=== PATIENT | female | born 1995 | race Caucasian/White ===

== ENCOUNTER 2025-03-17 15:40 | Outpatient (CLI) | payer OTHER, SELFPAY ==
--- OUTSIDE RECORDS SUMMARY | 2025-03-17 15:46 | XMS_ITS | Encounter Summary ---
Author Organization [facility] Address [address] [place] [address] Care Team Providers Care Emergency Room Clerk Name Role Phone Ghanshyam Aguillon MD Primary Care Provider [phone] Encounter Details Date Type Department Care Team (Late st Contact Info) Description 03/25/2019 Lab Requisition [facility] DermPath Lab [address] [facility] [place] [id number] Jeanmarie Harmon MD [address] [place] [address] Social History Tobacco Use Types Packs/Day Years Used Date Smoking Tobacco: Never Assessed Comments Unknown Sex and Gender Information Value Date Recorded Sex Assigned at Not on file 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 Gender Identity Not on file Sexual Orientation Not on file documented as of this encounter Plan of Treatment Not on file documented as of this encounter Procedures Procedure Name Priority Date/Time Associated Diagnosis Comments DERMATOPATHOLOGY Routine 03/24/2019 12:0 0 AM CDT documented in this encounter Results * DERMATOPATHOLOGY (03/24/2019 12:00 AM CDT) Case Report Dermatopathology Report Case: [id number] Authorizing Provider: Jeanmarie Harmon MD Collected: 03/24/2019 12:00 AM Pathologist: Danny Snider MD Received: 03/25/2019 11:39 AM Specimen: Skin, below left jawline 9 4:05 PM CDT DERMATOPATHOLOGY LABORATORY Final Diagnosis Specimen A. SKIN, below left jawline: CHRONIC PERIFOLLICULITIS (L73.8) (see microscopic description) 9 4:05 PM CDT DERMATOPATHOLOGY LABORATORY at 1605 CDT Clinical History R/O DF, other. 9 4:05 PM CDT DERMATOPATHOLOGY LABORATORY Gross Description Specimen A: Received is one formalin filled container labeled with the patient's name and designated below left jawline. The specimen consists of a shave biopsy measuring [id number]. Jar 0. 4:05 PM CDT DERMATOPATHOLOGY LABORATORY Microscopic Description Specimen A. SKIN, below left jawline: Sections show a perifollicular lymphohistiocytic infiltrate. Additional deeper sections were obtained and reviewed. 4:05 PM CDT DERMATOPATHOLOGY LABORATORY Disclaimer An external and internal positive and negative controls are appropriate for the histochemical, immunohistochemical and immunofluorescence stain(s) in this case (if any), except where stated explicitly. The performance characteristics of the stain(s) cited in this report were developed and its performance characteristic determined by the Dermatopathology Laboratory at [facility], directed by Dr. Lacey Snider. These tests need not be, and therefore are not, approved by the [place] Food and Drug Administration. The tests are used for clinical purposes. Billing Codes Specimen Charges Stain Charges 01100 1 9 4:05 PM CDT DERMATOPATHOLOGY LABORATORY Embedded Images 4:05 PM CDT DERMATOPATHOLOGY LABORATORY Pathology/Cytolog y TISSUE SPECIMEN FROM SKIN / Unknown 03/24/2019 03/25/2019 11:39 AM CDT Jeanmarie Harmon MD LAB - PATHOLOGY/CYTOLOGY ORD ERABLES Final Result DERMATOPATHOLOGY LABORATORY [facility] - Department of Dermatology [address] [facility] [facility], [address]th [place] [address], [facility] [phone] documented in this encounter Visit Diagnoses Not on filedocumented in this encounter Care Teams Emergency Room Clerk Relationship Specialty Start Date End Date Ghanshyam Aguillon MD [address] [place] [address] [address] [place] [address] PCP - General 10/08/16 documented as of this encounter
--- OUTSIDE RECORDS SUMMARY | 2025-03-17 15:46 | XMS_ITS | Clinical Summary ---
Author Organization [facility] Address [address] [place] [address] Care Team Providers Care Exhibit Display Representative Name Role Phone Ghanshyam Aguillon MD Primary Care Provider Source Comments [facility],non-owned Affiliates and Associated Physician Practices is amultiple site organization consisting of ambulatory clinics and hospital sitesin [place], [place], [place] and [place]. This disclosure is being madepursuant to the Care Everywhere program and may not contain all information available regarding this patient. 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 Gender Identity Not on file Sexual Orientation Not on file Plan of Treatment Health Maintenance Due Date Last Done Comments HIV SCREENING 2009 HEPATITIS C SCREENING 01/20/2012 DTAP/TDAP/TD VACCINES (1 - Tdap) 2013 HEPATITIS B VACCINE (1 of 3 - 19+ 3-dose series) 2013 COVID-19 VACCINE ( - 2023-2 5 season) 2024 DEPRESSION SCREENING 09/08/2024 INFLUENZA VACCINE (Season Ended) 2025 ZOSTER VACCINE (1 of 2) 01/25/2044 HIB VACCINE Aged Out No longer eligi ble based on patient's age to complete this topic HPV VACCINE Aged Out No longer eligi ble based on patient's age to complete this topic MENINGOCOCCAL (Group B) VACC INE SHARED DECISION-MAKING Aged Out No longer eligibl e based on patient's age to complete this topic MENINGOCOCCAL GROUPS A/C/Y/W VACCINE Aged Out No longer eligible b ased on patient's age to complete this topic PNEUMOCOCCAL VACCINE Aged Out No long er eligible based on patient's age to complete this topic [place] [address] [facility] Care Teams Exhibit Display Representative Relationship Specialty Start Date End Date Ghanshyam Aguillon MD [address] [place] [address] PCP - General 10/08/16
--- OUTSIDE RECORDS SUMMARY | 2025-03-17 15:46 | XMS_ITS | Continuity of Care Document ---
Author Organization [facility] Address [address] [place] [address] [address] [place] [address] Phone Care Team Providers Care Adjunct Teacher Name Role Phone Alicia VERGARA MD, Caesar Unavailable Unavailable Allergies, Adverse Reactions, Alerts Substance Reaction Status Criticality MINOCYCLINE HCL Active No Informati on azithromycin Active No Information Medications Medication Instructions Dosage Effective Dates (start - stop) Status Comments Xiidra 5 % eye drops in a dropperette instill 1 drop by ophthalmic route 2 times every day into both eyes approximately 12 hours apart 1.00 drop - Active Adderall XR 20 mg capsule,extended release take 1 capsule by oral route every day in the morning upon awakening 20 MG - Active control (unknown strength) Not Available - Active Xiidra 5 % eye drops in a dropperette instill 1 drop by ophthalmic route 2 times every day into both eyes approximately 12 hours apart 1.00 drop - No Longer Active PLEASE FILL FIRST RX FREE PER COUPON THAT PT IS BRINGING IN Procedures Procedure Date OFFICE/OUTPATIENT VISIT, EST OFFICE/OUTPATIENT VISIT, NEW OPHTHALMIC BIOMETRY SPECIAL EYE EXAM, INITIAL MICROFLUID BEAR TEARS MICROFLUID BEAR TEARS OPHTHALMIC BIOMETRY OPHTHALMIC BIOMETRY Advance Directives Directive Yes / No Effective Date File Name No Information Encounters Encounter Description Practice Location Reason(s) For Visit Diagnoses Date Provider Providers Copied on Encounter [facility], [address] [facility] [address], [place], [place], [id number], [place] tel:[phone] OPH CONSULT BOY DENSON No Information 7 Alicia Maynard. [address], [place], [place], [id number] , [place]. tel:[phone] OFFICE/OUTPA TIENT VISIT, [facility], [address] [place] [address], [id number], tel:[phone] OPH CONSULT BOY DENSON vision is improved OU (chief complaint) No Information 7 Alicia Maynard. [address], [address], [place], [place], [id number] , [place]. tel:[phone] Referring Provider: Caesar Vargas MD P, [address] [place] [address], [address] . tel:[phone] OFFICE/OUTPA TIENT VISIT, [facility], [address] [place] [address], [id number], tel:[phone] OPH CONSULT BOY DENSON LASIK evaluation (chief complaint) Age-related nuclear cataract, bilateralKerato conjunct sicca, not specified as Sjogren's, bilateralMyopia , bilateralOther vitreous opacities, bilateralAcute atopic conjunctivitis, bilateral Alicia Maynard. [address], [address], [place], [place], [id number] , [place]. tel:[phone] Referring Provider: Caesar Talamantes, [address], [place], [address] . tel:[phone] Family History Family Member Type Diagnosis Age At Onset No Information Payers Payer name Insurance type Covered green party ID Authoriza tiyenni(s) [facility] CI [id number] Social History Type Description Quantity Date Captured Comments Sex Female Smoking Status No Information Chief Complaint And Reason For Visit No Information Reason For Referral Reason For Referral No Information History Of Present Illness Encounter Date Complaint History Of Prese nt Illness vision is improved vision is imp roved OU LASIK evaluation The 21 year old female presents for LASIK evaluation in both eyes. Patient reports vision seems stable OU with glasses. Patient does not wear contacts. Ocular comfort doing well. Glasses are [address] Keith Jimenez. Optical biometry and pachs ordered today. TL ordered 289/316 Functional Status Date Functional Assessmen t No Information Instructions Date Instruction Additional Infor jay Follow up - RTO for LASIK OU with JG Impression/Plan - Th ere is no evidence of retinal pathology. All signs and risks of retinal detachment and tears were discussed in detail. Patient instructed to call office immediately if any symptoms noted. Related to Other vitreous opacities, bilateral Impression/Plan - Up dated Mrx for Dx/treatment. Related to Myopia, bilateral Impression/Plan - Th ere is no evidence of permanent changes to the cornea. Explained condition does not have a cure and will need artificial tears for maintenance.Tear lab 289/316 Related to Keratoconjunct sicca, not specified as Sjogren's, bilateral Impression/Plan - Di scussed diagnosis in detail with patient. Discussed treatment options with patient. Lasik candidate. Surgical risks and benefits were discussed, explained and understood by patient. Patient elects to have surgery. Educational materials provided:Eye drops, Dry eye syndrome and Lasik.Ref by [facility] Related to Age-related nuclear cataract, bilateral Impression/Plan - Co ndition is seasonal. No treatment at this time. Related to Acute atopic conjunctivitis, bilateral Assessments Type Assessment Date No Information Patient Care Teams Name Effective Dates (start - stop) Status Members No Information
--- OUTSIDE RECORDS SUMMARY | 2025-03-17 15:46 | XMS_ITS | Encounter Summary ---
Author Organization [facility] Address [address] [place] [address] Care Team Providers Care Ticker Wirer Name Role Phone Ghanshyam Aguillon MD Primary Care Provider [phone] Encounter Details Date Type Department Care Team (Late st Contact Info) Description 09/02/2018 Lab Requisition 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 Gender Identity Not on file Sexual Orientation Not on file documented as of this encounter Plan of Treatment Not on file documented as of this encounter Procedures Procedure Name Priority Date/Time Associated Diagnosis Comments DERMATOPATHOLOGY Routine 08/31/2018 12:0 0 AM CLINICAL REVIEWER documented in this encounter Results * DERMATOPATHOLOGY (08/31/2018 12:00 AM CLINICAL REVIEWER) Case Report Dermatopathology Report Case: [id number] Authorizing Provider: Jeanmarie Harmon MD Collected: 08/31/2018 12:00 AM Pathologist: Fariha Dewey MD Received: 09/02/2018 02:30 PM Specimen: Skin, right breast 8 11:28 AM CLINICAL REVIEWER DERMATOPATHOLOGY LABORATORY Final Diagnosis Specimen A. 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 8 11:28 AM [facility] DERMATOPATHOLOGY LABORATORY Gross Description Specimen A: Received is one formalin filled container labeled with the patient's name and designated right breast. The specimen consists of a shave biopsy measuring [id number]. Jar 0. 8 11:28 AM [facility] DERMATOPATHOLOGY LABORATORY Microscopic Description Specimen A. SKIN, right breast: This is a compound nevus. There is architectural disorder characterized by a lentiginous proliferation of melanocytes between irregular nevus nests of cells along the dermal-epidermal junction. There is underlying lamellar fibroplasia of the papillary dermis. The intradermal component is bland in appearance and matures with depth. (Compound Roland's Nevus or Compound Dysplastic Nevus) 8 11:28 AM [facility] DERMATOPATHOLOGY LABORATORY Disclaimer An external and internal positive and negative controls are appropriate for the histochemical, immunohistochemical and immunofluorescence stain(s) in this case (if any), except where stated explicitly. The performance characteristics of the stain(s) cited in this report were developed and its performance characteristic determined by the Dermatopathology Laboratory at [facility]. These tests need not be, and therefore are not, approved by the [place] Food and Drug Administration. The tests are used for clinical purposes. Billing Codes Specimen Charges Stain Charges 60194 1 8 11:28 AM [facility] DERMATOPATHOLOGY LABORATORY Embedded Images 11:28 AM [facility] DERMATOPATHOLOGY LABORATORY Pathology/Cytolog y TISSUE SPECIMEN FROM SKIN / Unknown 08/31/2018 09/02/2018 2:30 PM [facility] Jeanmarie Harmon MD LAB - PATHOLOGY/CYTOLOGY ORD ERABLES Final Result DERMATOPATHOLOGY LABORATORY [facility] - Department of Dermatology [address] [place] [address], [address]th Floor Lab [address] [phone] documented in this encounter Visit Diagnoses Not on filedocumented in this encounter Care Teams Ticker Wirer Relationship Specialty Start Date End Date Ghanshyam Aguillon MD [address] [place] [address] [address] [place] [address] PCP - General 10/08/16 documented as of this encounter
--- NOTE | 2025-03-17 15:53 | ECG_ITS ---
Test Date: 2025-03-17 15:59:25 Measurements Intervals [place] Rate: 87 P: 68 DC: 136 QRS: 71 QRSD: 91 T: 43 QT: 374 QTc: 451 Interpretive Statements SINUS RHYTHM POSSIBLE LEFT ATRIAL ENLARGEMENT [-0.1mV P-WAVE IN V1/V2] No previous ECG available for comparison Electronically Signed On 03-18-2025 07:14:21 CDT by Sonya Castaneda M.D.
== END 2025-03-17 15:41 | disposition home or self-care (01) ==
LOC: ANHCARD 15:43
PROVIDERS: PCP Nurse Practitioner Family; Visit Provider Nurse Practitioner Family
DX: R00.0 Tachycardia, unspecified (principal); R07.9 Chest pain, unspecified
CPT/HCPCS: 93005

== ENCOUNTER → 2025-07-25 10:10 | Outpatient (CLI) | payer OTHER, SELFPAY ==
--- NOTE | ~2025-07-25 | XR_ITS ---
EXAMINATION: XR hand RT min 3V, 07/25/2025 10:12 PROGRAM DIRECTOR SUBSTANCE ABUSE HISTORY: M79.641 - Pain in right hand COMPARISON: No comparisons available. Findings: No acute fracture or malalignment. No significant degenerative changes. Soft tissues unremarkable. Impression: No acute fracture or malalignment. Reviewed, dictated and finalized at location P. RAM DIRECTOR SUBSTANCE ABUSE Impression: No acute fracture or malalignment.
--- OUTSIDE RECORDS SUMMARY | 2025-07-25 19:03 | XMS_ITS | Data Portability ---
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 vaccine to prevent the 4 strains for HPV that cause cervical cancer if under age 26. Encourage safe sexual practices, to use condoms and limit partners if not already in a monogamous relationsh ip. Do monthly self breast exams. Have mammogram yearly or every other year depending on family history. BRCA testing is now available for patients with strong genetic history of female cancer. If interested contact the office. Engage in daily exercise of low impact aerobic exercise 45-60 minutes 4-5 times weekly. Avoid tobacco and illicit drugs as well as using moderation with alcohol intake less than 1-2 8 oz beverages daily. This lifestyle behavior pattern will lead to less health conditions and longer life span. If BMI greater than 25 weight watchers or dietary consult advised. Patient received above instructio ns, and questions have been answered. If you have any questions please call or respond to this email. Patient was made aware of the patient portal and may obtain a paper copy of today's plan if desired. [id number] EDEL Deleon [facility] [address],[facility] [place] [address] 02/19/2022 10:22:00 02/19/2022 11:58:47 Gynecologic examination [id number] Z01.419 Take Calcium with Vitamin D 1200mg daily if not receiving in daily diet. It is strongly advised to have an annual flu shot and up can obtain at most pharmacies . If you have not had a TDap shot in the last 10 years you should obtain one as well. Discussed with patient & provided with informatio n regarding Gardisil vaccine to prevent the 4 strains for HPV that cause cervical cancer if under age 26. Encourage safe sexual practices, to use condoms and limit partners if not already in a monogamous relationsh ip. Do monthly self breast exams. Have mammogram yearly or every other year depending on family history. BRCA testing is now available for patients with strong genetic history of female cancer. If interested contact the office. Engage in daily exercise of low impact aerobic exercise 45-60 minutes 4-5 times weekly. Avoid tobacco and illicit drugs as well as using moderation with alcohol intake less than 1-2 8 oz beverages daily. This lifestyle behavior pattern will lead to less health conditions and longer life span. If BMI greater than 25 weight watchers or dietary consult advised. Patient received above instructio ns, and questions have been answered. If you have any questions please call or respond to this email. Patient was made aware of the patient portal and may obtain a paper copy of today's plan if desired. WWENo hx of abnormal papsLast pap 02/2021, normal pap but no endo shown.Pap done todayHappy with Mirena IUD for control, no periods with it.Has had postcoital bleeding 1 or 2 times, just mild spotting with wiping. We discussed possibilit y of IUD strings with intercours e could cause some irritation . She declines STI testing. She should track if this happens again and RTC if this does continue for further evaluation .IUD placed 02/28/2017, due to be replaced on or before 02/29/2024S TI testing declinedNo family hx of breast or ovarian cancerUTD with PCPRTC in 1 year for WWE or sooner if needed Contracept ion care management [id number] Z30.9 [id number] EDEL Deleon [facility] [address] [address] 12/30/2023 10:27:18 12/30/2023 11:02:19 Gynecologic examination [id number] Z01.419 WWEpap updatedgc/ ct/trich testing added to papencoura ged f/u with PCP, precaution s reviewed Take Calcium with Vitamin D daily if not receiving in daily diet.It is strongly advised to have an annual flu shot and up can obtain at most pharmacies . If you have not had a TDap shot in the last 10 years you should obtain one as well. Discussed with patient & provided with informatio n regarding Gardisil vaccine to prevent the 4 strains for HPV that cause cervical cancer if under age 26.Encoura ge safe sexual practices, to use condoms and limit partners if not already in a monogamous relationsh ip.Do monthly self breast exams. BRCA testing is now available for patients with strong genetic history of female cancer. If interested contact the office. Engage in regular exercise. Avoid tobacco and illicit drugs. This lifestyle behavior pattern will lead to less health conditions and longer life span. If BMI greater than 25 dietary consult advised. Patient received above instructio ns, and questions have been answered. If you have any questions please call or respond to this email. Patient was made aware of the patient portal and may obtain a paper copy of today's plan if desired. Venereal d isease screening 227301398 Z11.3 Vaginal discharge 281742 006 N89.8 exam today wnlno current symptomsvu lvar care guidelines discussedS TI screen sent [id number] EDEL Deleon [facility] [address],[facility] [place] [address] 11/22/2024 10:30:54 11/22/2024 12:31:48 Contraception care management 527405314 Z30.9 Discussed with patient risks, benefits, and alternativ es of contracept ion. Discussed all options, including natural family planning, condoms, combined oral contracept miles, contracept elda patch, Nuva-ring, Depo-Prove ra, Nexplanon, intrauteri ne device, and sterilizat ion (tubal ligation, vasectomy) . Advised that of the above listed options, only condoms can prevent sexually transmitte d infections and that condoms can be used together with any form of contracept ion. opts for Mirena IUD removal/re placementw ill return prior to expiration (02/28/2025 ) Time spent in visit is a total of 20 mins with at least 50% of visit consisting of counseling and review of plan of care. [id number] EDEL Deleon [facility] [address] [address] 12/31/2024 10:04:59 12/31/2024 11:12:53 Removal of intrauterine contraceptive device [id number] Z30.432 [id number] Pt desired IUD removalUPT (-)IUD removed (see procedure note)preca utions discussed Initial pr escription of oral contraception 930070078 Z30.374 [id number] Discussed with patient risks, benefits, and alternativ es of contracept ion. Discussed all options, including natural family planning, condoms, combined oral contracept miles, contracept elda patch, Nuva-ring, Depo-Prove ra, Nexplanon, intrauteri ne device, and sterilizat ion (tubal ligation, vasectomy) . Advised that of the above listed options, only condoms can prevent sexually transmitte d infections and that condoms can be used together with any form of contracept ion. Discussed all control options in great detail. Pt would like to start POP. She is aware of the risks and benefits. . She is aware it is not effective for control the first month. She is also aware of the importance of taking at the same time every day. Encouraged use of condoms as the pill does not protect against STI's. Time spent in visit is a total of 18 mins with at least 50% of visit consisting of counseling and review of plan of care. [id number] EDEL Deleon [facility] [address] [address] 01/11/2025 17:04:43 01/12/2025 10:44:58 Gynecologic examination 21826419 Z01.810 [id number] WWEBC - slynd, refills sent x 12 months, r/b/a reviewedPa p - done todaySTI screen - declinedRo utine labs - ILDRTC in 1 yr or sooner if needed It is strongly advised to have an annual flu shot and up can obtain at most pharmacies . If you have not had a TDap shot in the last 10 years you should obtain one as well. Discussed with patient & provided with informatio n regarding the HPV vaccine if applicable . Encourage safe sexual practices, to use condoms and limit partners if not already in a monogamous relationsh ip. Do monthly self breast exams. BRCA testing is now available for patients with strong genetic history of female cancer. If interested contact the office. Engage in regular exercise. Avoid tobacco and illicit drugs. This lifestyle behavior pattern will lead to less health conditions and longer life span. If BMI greater than 25 dietary consult advised. Questions answered. Initial pr escription of oral contraception [id number] Z30.011 Health Concerns Section Related Observation LastModified by Organization Detai ls LastModified Time None Recorded Concern Status LastModified by Organization Details LastModified Time None Recorded Advance Directives Directive N: Payers Insurance Date Sequence Insurance Name Policy Number Policy Raymundo Covered Member ID Raymundo Member ID Guarantor Name 03/23/2020 1 [facility] [id number] Ruben Archer [id number] Nay Archer 12/31/2024 1 [employer] [id number] Nay Archer [id number] Nay Archer 12/31/2024 1 [facility] [id number] Nay Archer [id number] Nay Archer 12/31/2024 1 [employer] [id number] Nay Archer [id number] Nay Archer 01/08/2025 1 [facility] (MEDICAID HMO) [id number] Nay Archer [id number] Nay Archer 12/31/2024 1 [facility] [id number] Nay Archer [id number] Nay Archer 12/31/2024 1 [facility] Nay Archer [id number] Nay Archer Notes Date Note Type Note Provider Name and Address Organization Details Recorded Time 02/20/20 22 text/ht ml Annual GYNReported by PatientGenitourinary symptomsFor menstrual cycle, patient reportsnormal menses. For urinary symptoms, patient reportsno hematuriaandno incontinence. For vulva, patient reportsno genital lesion. For vagina, patient reportsnormal vaginal discharge.Breast symptomsFor breast, patient reportsno breast pain,no breast lump, andno nipple discharge.ContraceptionFor current contraception, patient reportssatisfied with current contraceptionandintrauterine device (iud).Endocrine symptomsFor sexual complaints, patient reportsno sexual complaints,no pain during intercourse, andnormal libido. For menopausal symptoms, patient reportsno menopausal symptomsandnormal vaginal lubrication.Psychological symptomsFor psychological symptoms, patient reportsno depression,no anxiety, andno pmdd.Preventative measuresFor preventive measures, patient reportsencourage self breast examination,encourage regular exercise,encourage no tobacco use, andencourage regular mammograms starting age 40. EDEL Deleon [address], [place], [address], [facility] 02/19/2022 11:46:34 12/30/19 24 text/ht ml Annual GYNReported by PatientGenitourinary symptomsFor menstrual cycle, patient reportsnormal menses. For urinary symptoms, patient reportsno hematuriaandno incontinence. For vulva, patient reportsno genital lesion. For vagina, patient reportsnormal vaginal discharge.Breast symptomsFor breast, patient reportsno breast pain,no breast lump, andno nipple discharge.ContraceptionFor current contraception, patient reportssatisfied with current contraceptionandintrauterine device (iud)(mirena iud, inserted 02/28/2017).Endocrine symptomsFor sexual complaints, patient reportsno sexual complaints,no pain during intercourse, andnormal libido. For menopausal symptoms, patient reportsno menopausal symptomsandnormal vaginal lubrication.Psychological symptomsFor psychological symptoms, patient reportsno depression,no anxiety, andno pmdd.Preventative measuresFor preventive measures, patient reportsencourage self breast examination,encourage regular exercise,encourage no tobacco use, andencourage regular mammograms starting age 40.28yo F3GYEOR - mirena IUD, inserted 02/28/2017 (will 02/28/2025)no issues with IUD discharge with an odor that comes and goes, none today. started using a new scented body wash has noticed a few random bruises pop up on her body over the past month then resolveno other symptoms, has PCP that she is going to see about this EDEL Deleon [address], [place], [address], [facility] 12/30/2023 10:55:51 11/23/19 25 text/ht ml 29yopresents for BC consultMirena IUD, inserted 02/28/2017wants to discuss IUD removal/replacement vs OCP EDEL Deleon [address], [place], [address], [facility] 11/22/2024 12:27:28 01/01/20 25 text/ht ml 29yopresents for Mirena IUD removalwants to discuss alternative options, int in starting slynd EDEL Deleon [address], [place], [address], [facility] 12/31/2024 11:08:43 01/12/20 25 text/ht ml Annual GYNReported by PatientGenitourinary symptomsFor menstrual cycle, patient reportsnormal menses. For urinary symptoms, patient reportsno hematuriaandno incontinence. For vulva, patient reportsno genital lesion. For vagina, patient reportsnormal vaginal discharge.Breast symptomsFor breast, patient reportsno breast pain,no breast lump, andno nipple discharge.ContraceptionFor current contraception, patient reportssatisfied with current contraceptionandoral contraceptives.Endocrine symptomsFor sexual complaints, patient reportsno sexual complaints,no pain during intercourse, andnormal libido. For menopausal symptoms, patient reportsno menopausal symptomsandnormal vaginal lubrication.Psychological symptomsFor psychological symptoms, patient reportsno depression,no anxiety, andno pmdd.Preventative measuresFor preventive measures, patient reportsencourage self breast examination,encourage regular exercise,encourage no tobacco use, andencourage regular mammograms starting age 40.29yo wweBC - slyndlast pap 12/2023 : EDEL Souza [address], [place], [address], [facility] 01/12/2025 09:08:47 OBGyn Episode No OBEpisode recorded.
--- OUTSIDE RECORDS SUMMARY | 2025-07-25 19:04 | XMS_ITS | Clinical Summary ---
Author Organization [facility] Address [address] [address] Care Team Providers Care Selvage Machine Operator Name Role Phone Ghanshyam Aguillon MD Primary Care Provider Source Comments [facility],non-owned Affiliates and Associated Physician Practices is amultiple site organization consisting of ambulatory clinics and hospital sitesin [place], [place], [place] and [place]. This disclosure is being madepursuant to the Care Everywhere program and may not contain all information available regarding this patient. Last updated 18.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 Gender Identity Not on file Sexual Orientation Not on file Plan of Treatment Health Maintenance Due Date Last Done Comments HIV SCREENING 2009 HEPATITIS C SCREENING 01/20/2012 DTAP/TDAP/TD VACCINES (1 - Tdap) 2013 HEPATITIS B VACCINE (1 of 3 - 19+ 3-dose series) 2013 PAP SMEAR 2015 HPV VACCINE (1 - 3-dose SCDM series) 2021 Cervical Cancer Screening 01/25/2024 PAP with HPV 01/25/2024 DEPRESSION SCREENING 09/08/2024 COVID-19 VACCINE ( - 2024-2 6 season) 2025 INFLUENZA VACCINE (#1) 2025 ZOSTER VACCINE (1 of 2) 01/25/2044 [...] age to complete this [place] [address] [facility] Care Teams Selvage Machine Operator Relationship Specialty Start Date End Date Ghanshyam Aguillon MD [facility] [place] [address] PCP - General 10/08/16
--- OUTSIDE RECORDS SUMMARY | 2025-07-25 19:04 | XMS_ITS | Encounter Summary ---
Author Organization [facility] Address [address] [place] [address] Care Team Providers Care Machine Rug Cleaner Name Role Phone Ghanshyam Aguillon MD Primary Care Provider [phone] Encounter Details Date Type Department Care Team (Late st Contact Info) Description 03/25/2019 Lab Requisition [facility] [address] [place] [id number] Jeanmarie Harmon MD [address] [place] [address] Social History Tobacco Use Types Packs/Day Years Used Date Smoking Tobacco: Never Assessed Comments Unknown Sex and Gender Information Value Date Recorded Sex Assigned at Not on file 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 Jar 0. 4:05 PM CDT DERMATOPATHOLOGY LABORATORY [...] characteristic determined by the Dermatopathology Laboratory at [facility], directed by Dr. Lacey Snider. These tests need not be, and therefore are not, approved by the [place] Food and Drug Administration. The tests are used for clinical purposes. Billing Codes Specimen Charges Stain Charges 78359 1 9 4:05 PM CDT DERMATOPATHOLOGY LABORATORY Embedded Images 4:05 PM CDT DERMATOPATHOLOGY LABORATORY Pathology/Cytolog y TISSUE SPECIMEN FROM SKIN / Unknown 03/24/2019 03/25/2019 11:39 AM CDT Jeanmarie Harmon MD LAB - PATHOLOGY/CYTOLOGY ORD ERABLES Final Result DERMATOPATHOLOGY LABORATORY [facility] - Department of Dermatology [address] [place] [address], [facility] [phone] documented in this encounter Visit Diagnoses Not on filedocumented in this encounter Care Teams Machine Rug Cleaner Relationship Specialty Start Date End Date Ghanshyam Aguillon MD [address] [place] [address] [address] [place] [address] PCP - General 10/08/16 documented as of this encounter
--- OUTSIDE RECORDS SUMMARY | 2025-07-25 19:04 | XMS_ITS | Encounter Summary ---
Author Organization [facility] Address [address] [place] [address] Care Team Providers Care Continuous Drier Helper Name Role Phone Ghanshyam Aguillon MD Primary Care Provider [phone] Encounter Details Date Type Department Care Team (Late st Contact Info) Description 09/02/2018 Lab Requisition [facility] Lab [address] [place] [id number] Jeanmarie Harmon MD [address] [place] [address] Social History Tobacco Use Types Packs/Day Years Used Date Smoking Tobacco: Never Assessed Comments Unknown Sex and Gender Information Value Date Recorded Sex Assigned at Not on file 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 Gender Identity Not on file Sexual Orientation Not on file documented as of this encounter Plan of Treatment Not on file documented as of this encounter Procedures Procedure Name Priority Date/Time Associated Diagnosis Comments DERMATOPATHOLOGY Routine 08/31/2018 12:0 0 AM SALES ENABLEMENT SPECIALIST documented in this encounter Results * DERMATOPATHOLOGY (08/31/2018 12:00 AM SALES ENABLEMENT SPECIALIST) Case Report Dermatopathology Report Case: [id number] Authorizing Provider: Jeanmarie Harmon MD Collected: 08/31/2018 12:00 AM Pathologist: Fariha Dewey MD Received: 09/02/2018 02:30 PM Specimen: Skin, right breast 8 11:28 AM SALES ENABLEMENT SPECIALIST DERMATOPATHOLOGY LABORATORY Final Diagnosis Specimen A. 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 8 11:28 AM [facility] DERMATOPATHOLOGY LABORATORY Gross Description Specimen A: Received is one formalin filled container labeled with the patient's name and designated right breast. The specimen consists of a shave biopsy measuring [id number]. Jar 0. 8 11:28 AM [facility] DERMATOPATHOLOGY LABORATORY Microscopic Description Specimen A. [...] or Compound Dysplastic Nevus) 8 11:28 AM [facility] DERMATOPATHOLOGY LABORATORY Disclaimer An external and internal positive and negative controls are appropriate for the histochemical, immunohistochemical and immunofluorescence stain(s) in this case (if any), except where stated explicitly. The performance characteristics of the stain(s) cited in this report were developed and its performance characteristic determined by the Dermatopathology Laboratory at [facility]. These tests need not be, and therefore are not, approved by the [place] Food and Drug Administration. The tests are used for clinical purposes. Billing Codes Specimen Charges Stain Charges 04809 1 8 11:28 AM [facility] DERMATOPATHOLOGY LABORATORY Embedded Images 11:28 AM [facility] DERMATOPATHOLOGY LABORATORY Pathology/Cytolog y TISSUE SPECIMEN FROM SKIN / Unknown 08/31/2018 09/02/2018 2:30 PM [facility] Jeanmarie Harmon MD LAB - PATHOLOGY/CYTOLOGY ORD ERABLES Final Result DERMATOPATHOLOGY LABORATORY [facility] - Department of Dermatology [address] [place] [address], 5th Floor Lab [address] [phone] documented in this encounter Visit Diagnoses Not on filedocumented in this encounter Care Teams Continuous Drier Helper Relationship Specialty Start Date End Date Ghanshyam Aguillon MD [address] [place] [address] [address] [place] [address] PCP - General 10/08/16 documented as of this encounter
== END ==
PROVIDERS: PCP Nurse Practitioner Family; Visit Provider Nurse Practitioner Family
DX: M79.641 Pain in right hand (principal)
CPT/HCPCS: 73130